=== PATIENT | male | born 1975 | race Caucasian/White ===

== ENCOUNTER 2017-10-07 13:06 | Emergency (ER) | payer SELFPAY ==
--- NOTE | 2017-10-07 13:23 | ER Document Report ---
ED Psych Disorder / Suicide - General Chief Complaint: Suicidal Ideation Stated Complaint: SUICIDAL IDEATION Time Seen by Provider: 10/07/17 13:19 Notes: 42-year-old male patient with chronic history of alcoholism and substance abuse comes in with increased thoughts of self-harm by OD. Admits to THC and cocaine last night. I have greeted and performed a rapid initial assessment of this patient. A comprehensive ED assessment and evaluation of the patient, analysis of test results and completion of the medical decision making process will be conducted by additional ED providers. TRAVEL OUTSIDE OF THE [place] IN LAST 30 DAYS: No - Related Data Allergies/Adverse Reactions: No Known Allergies Allergy (Verified 11/28/15 03:16) Past Medical History - Social History Family History: Reviewed & Not Pertinent - Past Medical History Cardiac Medical History: Reports: Hx Hypertension Musculoskeltal Medical History: Reports Hx Musculoskeletal Trauma Psychiatric Medical History: Reports: Hx Anxiety, Hx Depression - Immunizations Hx Diphtheria, Pertussis, Tetanus Vaccination: Yes Physical Exam - Vital signs Vitals: Temp Pulse Resp BP Pulse Ox 97.5 F 117 H 20 112/80 97 10/07/17 13:16 10/07/17 13:16 10/07/17 13:16 10/07/17 13:16 10/07/17 13:16 Course - Vital Signs Vital signs: Temp Pulse Resp BP Pulse Ox 97.5 F 117 H 20 112/80 97 10/07/17 13:16 10/07/17 13:16 10/07/17 13:16 10/07/17 13:16 10/07/17 13:16
[2017-10-07 14:05] LABS: ABSOLUTE EOSINOPHILS # (AUTO) 0.1 10^3/uL (0.0-0.6); ABSOLUTE LYMPHOCYTES (AUTO) 1.5 10^3/uL (0.5-4.7); ABSOLUTE MONOCYTES (AUTO) 0.4 10^3/uL (0.1-1.4); ABSOLUTE NEUT (AUTO) 3.3 10^3/uL (1.7-8.2); BASOPHILS % (AUTO) 0.5 % (0-2); EOSINOPHILS % (AUTO) 1.6 % (0-6); HEMATOCRIT 45.9 % (37.9-51.0); HEMOGLOBIN 15.7 g/dL (13.5-17.0); LYMPHOCYTES % (AUTO) 28.6 % (13-45); MEAN CORPUSCULAR HEMOGLOBIN 28.8 pg (27.0-33.4); MEAN CORPUSCULAR HGB CONC 34.3 g/dL (32.0-36.0); MEAN CORPUSCULAR VOLUME 84 fl (80-97); MONOCYTES % (AUTO) 6.7 % (3-13); PLATELET COUNT 284 10^3/uL (150-450); RED BLOOD COUNT 5.45 10^6/uL (4.35-5.55); RED CELL DISTRIBUTION WIDTH 13.8 % (11.5-14.0); SEGMENTED NEUTROPHILS % (AUTO) 62.6 % (42-78); TOTAL CELLS COUNTED % (AUTO) 100 %; WHITE BLOOD COUNT 5.2 10^3/uL (4.0-10.5)
--- NOTE | 2017-10-07 14:09 | ER Document Report ---
ED Psych Disorder / Suicide <[address] - Last Filed: 10/07/17 15:34> - General TRAVEL OUTSIDE OF THE [place] IN LAST 30 DAYS: No <BUSHRA OORZCO - Last Filed: 10/07/17 23:30> - General Chief Complaint: Suicidal Ideation Stated Complaint: SUICIDAL IDEATION Time Seen by Provider: 10/07/17 13:19 Notes: The patient is a 42-year-old male, past medical history chronic alcoholism and substance abuse, presents with increased thoughts of hurting himself by overdosing on his medications. He was recently seen at his psychiatrist and started on Lexapro 1 week ago. Patient admits to THC and cocaine last night. He also abuses Percocet and heroin. His last alcohol drink was 3 days ago and he is not feeling he is going through any alcohol withdrawal. Patient denies chest pain, shortness of breath, hallucinations, fevers, headache, neck stiffness or any other complaints. (BUSHRA OROZCO) - Related Data Allergies/Adverse Reactions: No Known Allergies Allergy (Verified 11/28/15 03:16) Past Medical History - General Information source: Patient - Social History Smoking Status: Current Every Day Smoker Frequency of alcohol use: Heavy Drug Abuse: Cocaine, Marijuana, Other Family History: Reviewed & Not Pertinent Patient has suicidal ideation: Yes Patient has homicidal ideation: No - Past Medical History Cardiac Medical History: Reports: Hx Hypertension Renal/ Medical History: Denies: Hx Peritoneal Dialysis Musculoskeltal Medical History: Reports Hx Musculoskeletal Trauma Psychiatric Medical History: Reports: Hx Anxiety, Hx Depression - Immunizations Hx Diphtheria, Pertussis, Tetanus Vaccination: Yes <BUSHRA OROZCO - Last Filed: 10/07/17 23:30> Review of Systems <[address] - Last Filed: 10/07/17 15:34> <BUSHRA OROZCO - Last Filed: 10/07/17 23:30> - Review of Systems Notes: REVIEW OF SYSTEMS: CONSTITUTIONAL: -fevers, -chills EENT: -eye pain, -difficulty swallowing, -nasal congestion CARDIOVASCULAR: -chest pain, -syncope. RESPIRATORY: -cough, -SOB GASTROINTESTINAL: -abdominal pain, -nausea, -vomiting, -diarrhea GENITOURINARY: -dysuria, -hematuria MUSCULOSKELETAL: -back pain, -neck pain SKIN: -rash or skin lesions. HEMATOLOGIC: -easy bruising or bleeding. LYMPHATIC: -swollen, enlarged glands. NEUROLOGICAL: -altered mental status or loss of consciousness, -headache, - neurologic symptoms PSYCHIATRIC: -anxiety, +depression, +SI ALL OTHER SYSTEMS REVIEWED AND NEGATIVE. (BUSHRA OROZCO) Physical Exam <[address] - Last Filed: 10/07/17 15:34> <BUSHRA OROZCO - Last Filed: 10/07/17 23:30> - Vital signs Vitals: Temp Pulse Resp BP Pulse Ox 97.5 F 117 H 20 112/80 97 10/07/17 13:16 10/07/17 13:16 10/07/17 13:16 10/07/17 13:16 10/07/17 13:16 - Notes Notes: PHYSICAL EXAMINATION: GENERAL: Well-appearing, well-nourished and in no acute distress. HEAD: Atraumatic, normocephalic. EYES: Pupils equal round and reactive to light, extraocular movements intact, sclera anicteric, conjunctiva are normal. ENT: nares patent, oropharynx clear without exudates. Moist mucous membranes. NECK: Normal range of motion, supple without lymphadenopathy LUNGS: Breath sounds clear to auscultation bilaterally and equal. No wheezes rales or rhonchi. HEART: Regular rate and rhythm without murmurs ABDOMEN: Soft, nontender, normoactive bowel sounds. No guarding, no rebound. No masses appreciated. EXTREMITIES: Normal range of motion, no pitting or edema. No cyanosis. NEUROLOGICAL: Cranial nerves grossly intact. Normal speech, normal gait. Normal sensory and motor exams. PSYCH: Flat affect. Suicidal thoughts. SKIN: Warm, Dry, normal turgor, no rashes or lesions noted. (BUSHRA OROZCO) Course - Laboratory Result Diagrams: 10/07/17 13:45 10/07/17 13:[address] <[address] - Last Filed: 10/07/17 15:34> - Laboratory Result Diagrams: 10/07/17 13:45 10/07/17 13:45 - EKG Interpretation by Id EKG shows normal: Sinus rhythm, [place], Intervals, QRS Complexes, ST-T Waves Rate: Normal <BUSHRA OROZCO - Last Filed: 10/07/17 23:30> - Re-evaluation Re-evalutation: 10/07/17 14:31 Pt with increasing suicidal thoughts after starting Lexapro 1 week ago. He is hemodynamically stable and has no signs of substance or alcohol withdrawal at this time. Patient appears depressed and, with his polysubstance abuse and beginning a new medication, will observe overnight and reassess. Will continue to monitor and have mental health evaluate patient for further recommendations. (BUSHRA OROZCO) - Vital Signs Vital signs: Temp Pulse Resp BP Pulse Ox 97.5 F 117 H 20 112/80 97 10/07/17 13:16 10/07/17 13:16 10/07/17 13:16 10/07/17 13:16 10/07/17 13:16 - Laboratory Laboratory results interpreted by me: 10/07/17 13:45 Chloride 108 H AST 13 L ALT 20 L Alkaline Phosphatase 36 L Total Protein 5.5 L Salicylates < 1.0 L Acetaminophen < 10 L Discharge <[address] - Last Filed: 10/07/17 15:34> <BUSHRA OROZCO - Last Filed: 10/07/17 23:30> - Discharge Clinical Impression: Suicidal thoughts, Polysubstance abuse Condition: Stable Disposition: HOME, SELF-CARE Additional Instructions: COCAINE ABUSE: Cocaine causes many dangerous medical problems. Problems can occur even with "usual" amounts. Cocaine affects judgement, creating a sense of invulnerability. Cocaine users often make bad decisions that seem "great" at the time. Most cocaine users eventually will be hurt by bad job performance, damaged personal relations, crime, and unsafe sexual practices. Toxic effects of cocaine can include seizures, hallucinations, delusions, high blood pressure, heart damage, or sudden . There's always the risk of a "bad batch." But heart attacks, brain hemorrhages, or cardiac arrest can occur unpredictably even with "normal" use. Injection of cocaine is risky for abscesses, endocarditis (heart infection) , pneumonia, and AIDS. Withdrawal from cocaine often causes anxiety and drug cravings. Some users become paranoid and psychotic. Many treatment programs are available, but you must make the decision to quit. Medication can be prescribed to control the symptoms of cocaine toxicity (beta blockers or benzodiazepines). Withdrawal symptoms may require tranquilizers. DEPRESSION: Your evaluation reveals that you have mental depression. While symptoms may be vague, they often include disturbance of sleep, fatigue, loss of appetite , and general loss of interest in life. While depression may be a side effect of drugs, or a reaction to a major change in your life, many cases have no known cause. If depression is acute, and related to a major loss in your life, you can expect it to clear completely with time. If you have been depressed a long time , are prone to repeated bouts of depression or low mood, or have been thinking of suicide, get help. Depression can be treated with anti-depressant medication and counselling. Long-term depression will often take a few weeks to clear, even with appropriate medication. Follow-up care is important. SUICIDAL IDEATION: Suicidal ideation is a common medical term for thoughts about suicide, which may be as detailed as a formulated plan, without the suicidal act itself. Although most people who undergo suicidal ideation do not commit suicide, some go on to make suicide attempts. The range of suicidal ideation varies greatly from fleeting to detailed planning, role playing, and unsuccessful attempts. While thoughts about suicide are common, most people do not carry out serious actions to commit suicide. Based upon your evaluation and discussion with you, we do not believe you are currently at risk to act upon your thoughts of suicide. You have agreed to return to the Emergency Department, at any time , if you feel inclined to act upon your suicidal thoughts. FOLLOW-UP CARE: You have declined inpatient substance abuse treatment; you are encouraged to [facility] for both your mental health and substance abuse treatment. Your mental health treatment cannot be effectively treated until your substance abuse has been addressed. If you experience worsening or a significant change in your symptoms, notify the physician immediately or return to the Emergency Department at any time for re-evaluation. Referrals: [facility] [Outside] - Follow up in 3-5 days
[2017-10-07 14:19] LABS: APPEARANCE,URINE CLEAR; BILIRUBIN,URINE NEGATIVE (NEGATIVE); COLOR,URINE YELLOW; GLUCOSE, URINE NEGATIVE (NEGATIVE); KETONES,URINE NEGATIVE (NEGATIVE); LEUKOCYTE ESTERASE,URINE NEGATIVE (NEGATIVE); NITRITE,URINE NEGATIVE (NEGATIVE); PROTEIN,URINE NEGATIVE (NEGATIVE); URINE SPECIFIC GRAVITY 1.012; UROBILINOGEN,URINE NEGATIVE mg/dL (<2.0)
[2017-10-07 14:24] LABS: ALANINE AMINOTRANSFERASE 20 U/L (21-72); ALBUMIN 3.6 g/dL (3.5-5.0); ALKALINE PHOSPHATASE 36 U/L (38-126); ANION GAP 10 (5-19); ASPARTATE AMINO TRANSFERASE 13 U/L (17-59); BILIRUBIN,DIRECT 0.1 mg/dL (0.0-0.4); BLOOD UREA NITROGEN 16 mg/dL (7-20); CALCIUM 9.2 mg/dL (8.4-10.2); CARBON DIOXIDE 25 mmol/L (22-30); CHLORIDE 108 mmol/L (98-107); GLUCOSE 104 mg/dL (75-110); POTASSIUM 4.1 mmol/L (3.6-5.0); TOTAL PROTEIN 5.5 g/dL (6.3-8.2)
[2017-10-07 14:25] LABS: ACETAMINOPHEN < 10 ug/mL (10-30); ALCOHOL < 10 mg/dL (NONE DETECTED); SALICYLATE < 1.0 mg/dL (2.0-20.0)
[2017-10-07 14:37] LABS: URINE AMPHETAMINES SCREEN NEGATIVE; URINE BARBITURATES SCREEN NEGATIVE; URINE BENZODIAZEPINES SCREEN UNCONFIRMED POSITIVE; URINE COCAINE SCREEN UNCONFIRMED POSITIVE; URINE MARIJUANA (THC) SCREEN NEGATIVE; URINE METHADONE SCREEN NEGATIVE; URINE PHENCYCLIDINE SCREEN NEGATIVE
--- NOTE | 2017-10-07 17:08 | PSYCHOLOGICAL NOTE ---
Psych Note - Psych Note Psych Note: Reason for consult: Suicidal ideation, substance abuse 42-year-old male patient with chronic history of alcoholism and substance abuse comes in with increased thoughts of self-harm by OD. Admits to THC and cocaine last night. Patient disclosed that he has been having suicidal ideation for approximately 2- 3 days and has a plan of either overdosing or hanging himself. He states that he attempted suicide by overdose with heroin 1-1/2 months ago. He continues state that he was put on Effexor and Seroquel but states that it is "not working and this made it worse." Patient denies outpatient mental health or substance use provider and states that he has never had substance abuse treatment. He states that he needs to "get his meds straight." He reports that he has a diagnosis of bipolar and PTSD. Patient was asked if he had transportation by a friend if he was able to get into [facility] he disclosed "left there a week and a half ago and it did not work out." Patient is alert and orientated to person, place, time and circumstance. Mood is dysphoric with flat affect. Patient endorses suicidal ideation with multiple plans i.e. overdosing or hanging. Patient denies homicidal ideation. Delusions are absent behaviors congruent with intact reality based presentation i.e. organized and linear thought processes. Conversational speech was flat. Eye contact was well-maintained. Intellectual abilities appear to be within the average range. Attention and concentration were good. Insight, judgment, impulse control are historically poor due to substance abuse. Clinician notes patient previously has stated he had not received any substance abuse treatment in the past. Polysubstance abuse 292.9 (F12.99) unspecified cannabis related disorder 292.9 (F14.99) unspecified stimulant related disorder; cocaine 292.9 (F11.99) unspecified opiate related disorder; heroin per history provided by patient 291.9 (F10.99) Unspecified Alcohol related discorded per history provided by patient 296.80 (F31.9) unspecified bipolar and related disorder per history provided by patient 309.81 (F43.10) post manic stress disorder per history provided by patient Impression\\plan: Patient is recommended for overnight observation. Patient discloses substance abuse with passive suicidal ideation. Patient recently started on Effexor; presents disphoric mood with flat affect. Patient will be reevaluated. Dr. Pressley was consulted and the care and management this patient ; attending physician is agreement with recommendations and disposition.
--- NOTE | 2017-10-07 17:33 | ER Document Report ---
ED Medical Screen (RME) - General Chief Complaint: Suicidal Ideation Stated Complaint: SUICIDAL IDEATION Time Seen by Provider: 10/07/17 13:19 Notes: 42-year-old male patient with chronic history of alcoholism and substance abuse comes in with increased thoughts of self-harm by OD. Patient admits to THC and cocaine last night. I have greeted and performed a rapid initial assessment of this patient. A comprehensive ED assessment and evaluation of the patient, analysis of test results and completion of the medical decision making process will be conducted by additional ED providers. TRAVEL OUTSIDE OF THE [place] IN LAST 30 DAYS: No - Related Data Allergies/Adverse Reactions: No Known Allergies Allergy (Verified 11/28/15 03:16) Past Medical History - Social History Frequency of alcohol use: Heavy Drug Abuse: Cocaine, Marijuana, Other - Past Medical History Cardiac Medical History: Reports: Hx Hypertension Renal/ Medical History: Denies: Hx Peritoneal Dialysis Musculoskeltal Medical History: Reports Hx Musculoskeletal Trauma Psychiatric Medical History: Reports: Hx Anxiety, Hx Depression - Immunizations Hx Diphtheria, Pertussis, Tetanus Vaccination: Yes Physical Exam - Vital signs Vitals: Temp Pulse Resp BP Pulse Ox 97.5 F 117 H 20 112/80 97 10/07/17 13:16 10/07/17 13:16 10/07/17 13:16 10/07/17 13:16 10/07/17 13:16 Course - Vital Signs Vital signs: Temp Pulse Resp BP Pulse Ox 97.5 F 117 H 20 112/80 97 10/07/17 13:16 10/07/17 13:16 10/07/17 13:16 10/07/17 13:16 10/07/17 13:16 - Laboratory Result Diagrams: 10/07/17 13:45 10/07/17 13:45 Laboratory results interpreted by me: 10/07/17 13:45 Chloride 108 H AST 13 L ALT 20 L Alkaline Phosphatase 36 L Total Protein 5.5 L Salicylates < 1.0 L Acetaminophen < 10 L Doctor's Discharge - Discharge Clinical Impression: Suicidal thoughts, Polysubstance abuse Condition: Stable Disposition: HOME, SELF-CARE Additional Instructions: COCAINE ABUSE: Cocaine causes many dangerous medical problems. Problems can occur even with "usual" amounts. Cocaine affects judgement, creating a sense of invulnerability. Cocaine users often make bad decisions that seem "great" at the time. Most cocaine users eventually will be hurt by bad job performance, damaged personal relations, crime, and unsafe sexual practices. Toxic effects of cocaine can include seizures, hallucinations, delusions, high blood pressure, heart damage, or sudden . There's always the risk of a "bad batch." But heart attacks, brain hemorrhages, or cardiac arrest can occur unpredictably even with "normal" use. Injection of cocaine is risky for abscesses, endocarditis (heart infection) , pneumonia, and AIDS. Withdrawal from cocaine often causes anxiety and drug cravings. Some users become paranoid and psychotic. Many treatment programs are available, but you must make the decision to quit. Medication can be prescribed to control the symptoms of cocaine toxicity (beta blockers or benzodiazepines). Withdrawal symptoms may require tranquilizers. DEPRESSION: Your evaluation reveals that you have mental depression. While symptoms may be vague, they often include disturbance of sleep, fatigue, loss of appetite , and general loss of interest in life. While depression may be a side effect of drugs, or a reaction to a major change in your life, many cases have no known cause. If depression is acute, and related to a major loss in your life, you can expect it to clear completely with time. If you have been depressed a long time , are prone to repeated bouts of depression or low mood, or have been thinking of suicide, get help. Depression can be treated with anti-depressant medication and counselling. Long-term depression will often take a few weeks to clear, even with appropriate medication. Follow-up care is important. SUICIDAL IDEATION: Suicidal ideation is a common medical term for thoughts about suicide, which may be as detailed as a formulated plan, without the suicidal act itself. Although most people who undergo suicidal ideation do not commit suicide, some go on to make suicide attempts. The range of suicidal ideation varies greatly from fleeting to detailed planning, role playing, and unsuccessful attempts. While thoughts about suicide are common, most people do not carry out serious actions to commit suicide. Based upon your evaluation and discussion with you, we do not believe you are currently at risk to act upon your thoughts of suicide. You have agreed to return to the Emergency Department, at any time , if you feel inclined to act upon your suicidal thoughts. FOLLOW-UP CARE: You have declined inpatient substance abuse treatment; you are encouraged to follow-up with [facility] for both your mental health and substance abuse treatment. Your mental health treatment cannot be effectively treated until your substance abuse has been addressed. If you experience worsening or a significant change in your symptoms, notify the physician immediately or return to the Emergency Department at any time for re-evaluation. Referrals: [facility] [Outside] - Follow up in 3-5 days
--- NOTE | 2017-10-07 19:20 | EKG REPORT ---
SEVERITY:- NORMAL ECG - SINUS RHYTHM : Confirmed by: Terrence Bettencourt MD 07-Oct-2017 19:19:01
[2017-10-07] MEDS ORDERED: GABAPENTIN 300 MG CAPSULE PO ONE (23:49)
[2017-10-08] MEDS ORDERED: LORAZEPAM INJ 2 MG/1 ML VIAL IM ONE (10:29)
--- NOTE | 2017-10-08 10:31 | ER Document Report ---
Doctor's Note Notes: 10/08/17 10:29 Mr. Link was seen and examined during the psychiatric rounds with behavioral health team. Patient is here for evaluation of substance abuse including opioids as well as alcohol. Patient was recently started on Effexor and now has worsening depression as well as suicidal ideations. Patient also has substance-induced depression and therefore have the symptoms. This morning he continues to feel depressed as well as suicidal. Patient is willing to be admitted to inpatient psychiatric facility. Patient has mild withdrawal today. Most of it appears to be from opioids given diarrhea as well as abdominal cramping. Patient does have mild tremors bilaterally that can be a withdrawal from alcohol. Will give patient 2 mg of Ativan IM. Disposition per behavioral health team recommendations. At present time patient is being monitored emergency room for further disposition.
--- NOTE | 2017-10-08 13:37 | PSYCHOLOGICAL NOTE ---
Psych Note - Psych Note Psych Note: Reason for consult: Suicidal ideation, substance abuse 42-year-old male patient with chronic history of alcoholism and substance abuse comes in with increased thoughts of self-harm by OD. Admits to THC and cocaine last night. Clinician conducted checking with patient Patient disclosed that he was previously in [facility] for 3 weeks but they would put him on medication without asking "it did not go very well" and feels that he did not get proper treatment. He reports that he would like assistance with his depression and substance abuse however feels that outpatient services would not help him. He continued to disclose that since they put him on Effexor his depression is gotten to the point where he will stare at his bottle of Seroquel and contemplate "eating them." He states that "this is not normal...I need help... when my meds work I don't do any drugs." Clinician spoke with patient's girlfriend, Isabella [phone]. She disclosed the patient has been "severely depressed and was put on new medication." She reports that the patient has a history of bipolar however his medications seem to have stopped working. Patient has not been sleeping and feels alone. She reports the night before last she received a text in the middle the night asking for her to call him in the morning. When she called at 7 AM he was very difficult to understand but was asking to be picked up and taken to the hospital. When she got to him he disclosed that he "ate" all of his medications. She attempted to figure out what medication he took at which point he stated Seroquel but did not know how many he took. She reports the patient has had suicidal ideation for a while and states "he just wants to . " He has reported that he would take all his medications; however, now he had acted on it. She reports that currently their relationship is currently not what the patient wants because "I need someone I can depend on... I cannot be there for him like he needs." Behavior health team contacted the [facility] in [place]; there are no available beds. 296.80 (F31.9) unspecified bipolar and related disorder per history provided by patient Polysubstance abuse 292.9 (F12.99) unspecified cannabis related disorder 292.9 (F14.99) unspecified stimulant related disorder; cocaine 292.9 (F11.99) unspecified opiate related disorder; heroin per history provided by patient 291.9 (F10.99) Unspecified Alcohol related discorded per history provided by patient 309.81 (F43.10) post manic stress disorder per history provided by patient Impression\\plan: Patient is considered cleared for acute psychiatric services. Patient's girl friend will be coming up to [place] patient to drive to [facility] for admission to detox. Patient is agreeing to this. Patient discloses chronic passive suicidal ideation which is increased from his drug use. Patient treatment needs treatment for his substance abuse before his mental health can be appropriately evaluated and treated. Dr. Pressley was consulted and the care and management this patient; attending physician is agreement with recommendations and disposition.
[2017-10-08 17:06] VITALS: BP 129/88
--- NOTE | 2017-10-08 17:29 | ER Document Report ---
Doctor's Note Notes: 10/08/17 17:28 Patient feels better after Ativan. After discussion with patient and family, he agreed to to be discharged with family and drive to [facility] for detox as well as management of his depression. The facility was contacted and patient will go there for walk-in admission. He agree with the plan. Patient was given strict precautions to come back if he is unable to get checked in today.
== END 2017-10-08 17:30 | disposition home or self-care (01) ==
LOC: ER 13:06
DX: R45.851 Suicidal ideations (principal); F19.10 Other psychoactive substance abuse, uncomplicated; F12.90 Cannabis use, unspecified, uncomplicated; F14.90 Cocaine use, unspecified, uncomplicated; F10.20 Alcohol dependence, uncomplicated; I10 Essential (primary) hypertension
CPT/HCPCS: 93005; 99285; 96372; 36415; 80307 ×4; 85025; 80053; 81001; 93010; J2060

== ENCOUNTER 2017-12-06 14:03 | Emergency (ER) | payer SELFPAY ==
[2017-12-06 14:11] VITALS: BP 156/103
--- NOTE | 2017-12-06 15:27 | ER Document Report ---
ED General - General TRAVEL OUTSIDE OF THE [place] IN LAST 30 DAYS: No - HPI Patient complains to provider of: Psychiatric evaluation suicidal ideation - General Chief Complaint: Psych Problem Stated Complaint: PSYCH EVAL/SUICIDAL IDEATION Time Seen by Provider: 12/06/17 14:09 - HPI Notes: Patient coming in for psychiatric evaluation suicidal ideation. Patient apparently has been having suicidal thoughts for a week. On review of patient' s pain discharge patient has multiple evaluations for this in the past along with history of drug abuse. Patient states he does smoke at this time patient is currently in the triage area with a social problems specialist from [facility]. Dr. Pressley has escorted me to the room as well that she will evaluate the patient in the triage room. Patient otherwise denies any fevers chills nausea vomiting diarrhea. (NATHAN HAMILTON) - Related Data Allergies/Adverse Reactions: No Known Allergies Allergy (Verified 12/06/17 14:04) Past Medical History - Social History Smoking Status: Current Every Day Smoker Chew tobacco use (# tins/day): No Frequency of alcohol use: None Drug Abuse: Cocaine, Other Family History: Reviewed & Not Pertinent Patient has suicidal ideation: Yes Patient has homicidal ideation: No - Past Medical History Cardiac Medical History: Reports: Hx Hypertension Renal/ Medical History: Denies: Hx Peritoneal Dialysis Musculoskeltal Medical History: Reports Hx Musculoskeletal Trauma Psychiatric Medical History: Reports: Hx Anxiety, Hx Depression - Immunizations Hx Diphtheria, Pertussis, Tetanus Vaccination: Yes Review of Systems - Review of Systems Constitutional: No symptoms reported EENT: No symptoms reported Cardiovascular: No symptoms reported Respiratory: No symptoms reported Gastrointestinal: No symptoms reported Genitourinary: No symptoms reported Male Genitourinary: No symptoms reported Musculoskeletal: No symptoms reported Skin: No symptoms reported Hematologic/Lymphatic: No symptoms reported Neurological/Psychological: Suicidal ideation -: Yes All other systems reviewed and negative Physical Exam - Vital signs Interpretation: Normal - General General appearance: Appears well, Alert - HEENT Head: Normocephalic, Atraumatic Eyes: Normal Pupils: PERRL - Respiratory Respiratory status: No respiratory distress Chest status: Nontender Breath sounds: Normal Chest palpation: Normal - Cardiovascular Rhythm: Regular Heart sounds: Normal auscultation Murmur: No - Abdominal Inspection: Normal Distension: No distension Bowel sounds: Normal Tenderness: Nontender Organomegaly: No organomegaly - Back Back: Normal, Nontender - Extremities General upper extremity: Normal inspection, Nontender, Normal color, Normal ROM , Normal temperature General lower extremity: Normal inspection, Nontender, Normal color, Normal ROM , Normal temperature, Normal weight bearing. No: Norma's sign - Neurological Neuro grossly intact: Yes Cognition: Normal Orientation: AAOx4 [place] Coma Scale Eye Opening: Spontaneous [place] Coma Scale Verbal: Oriented [place] Coma Scale Motor: Obeys Commands [place] Coma Scale Total: 15 Speech: Normal Motor strength normal: LUE, RUE, LLE, RLE Sensory: Normal - Skin Skin Temperature: Warm Skin Moisture: Dry Skin Color: Normal - Vital signs Vitals: Temp Pulse Resp BP Pulse Ox 98.0 F 99 18 156/103 H 97 12/06/17 14:08 12/06/17 14:08 12/06/17 14:08 12/06/17 14:08 12/06/17 14:08 Course - Re-evaluation Re-evalutation: 12/06/17 20:31 Patient was evaluated by Dr. Pressley in the triage area or is working today. Patient according to Dr. Pressley denies any suicidal ideation however states he was underlying situation her recommendation was to discharge patient home with a prescription for Celexa patient states that Celexa has helped in the past. Prior to receiving his discharge papers paperwork patient left the ER (NATHAN HAMILTON) - Vital Signs Vital signs: Temp Pulse Resp BP Pulse Ox 98.0 F 99 18 156/103 H 97 12/06/17 14:08 12/06/17 14:08 12/06/17 14:12/06/17 14:08 12/06/17 14:08 Discharge - Discharge Clinical Impression: Cocaine abuse Condition: Stable Disposition: HOME, SELF-CARE Additional Instructions: You were seen in the Emergency Department today for suicidal ideation and cocaine intoxication. You were evaluated and and assessed to be appropriate for discharge. Medications: 1. Celexa 20 mg daily Suicidal Ideation Suicidal ideation is a common medical term for thoughts about suicide, which may be as detailed as a formulated plan, without the suicidal act itself. Although most people who undergo suicidal ideation do not commit suicide, some go on to make suicide attempts. The range of suicidal ideation varies greatly from fleeting to detailed planning, role playing, and unsuccessful attempts. While thoughts about suicide are common, most people do not carry out serious actions to commit suicide. Given your chronic use of cocaine, and your recent ( i.e.today's use of crack/cocaine) use of cocaine, you are considered under the influence of an illegal and mood altering substance. Cocaine impairs an individual's mood, judgment, and impulse control, and can increase or cause suicidal thoughts or ideations. You are encouraged to seek long-term substance abuse treatment to address your substance induced mood disorder. Please return to the ED if your symptoms return or increase. Prescriptions: Citalopram Hydrobromide [Celexa] 1 tab PO DAILY #14 tablet
--- NOTE | 2017-12-07 19:46 | PSYCHOLOGICAL NOTE ---
Psych Note - Psych Note Psych Note: Met with Patient in [facility], who reported he was "suicidal with a plan." He stated he was depressed and wanted to "go inpatient and get my head straight before I go to an inpatient substance abuse facility." Patient reported he feels his medications are no longer working and they are making him more suicidal, though he ran out of them yesterday. He also states he was unaware that by suddenly stopping them would make him suicidal. Patient reports he was taking Effexor and Seroquel. Patient reports since he was last at [facility] in September 2017 he went to [facility] where he was inpatient for 10-15 days. He stated they increased his Effexor and Seroquel which he believed was working until the day he was discharged. He stated the medication was expensive and could not afford the medication since he had no insurance. He further reported he had his previous prescription which was already filled and only had to fill the current prescription provided to him at discharge at the beginning of October. patient reported he has not used any alcohol or other drugs since his discharge from [facility], except for crack / cocaine, which he has used daily to include this morning. He report chronic suicidal thoughts for the past 4 years and denied any previous attempts. Patient became very irritated with the questions and stated he just wanted help and to go inpatient to "clear his head." When attempting to clarify about the Effexor and understanding his situation, given it was the same exact story for the past 3 years, and he continues to take Effexor and Seroquel, despite them reportedly "not working" Patient became very aggravated and stated he did not want to leave and became threatening. The A worker who brought the Patient in, Shefali, reported she was unaware of the Patient's use of cocaine and was requesting [facility] to hold the Patient overnight until she could locate a bed in a detox. When questioned further about detox since Patient is denying use of drugs and she was unaware of his cocaine use, she was unwilling to discuss it. She would only state the Patient was suicidal. Shefali was advised of the Patient's history and his previous presentations while intoxicated and his ongoing pattern of behavior with regard to suicidal threats and agitations, and demands when he doesn't get what he wants. She then left the room to reportedly call her metal fabricating supervisor and returned to ask again if [facility] would hold the Patient overnight while they searched for a dual diagnosis inpatient facility.I explained to Shefali that while she was out of the room the Patient and I talked and he advised he was not really suicidal, he was upset about being "jerked around all day and being told he was going to be placed and then being brought here when I didn't want to come here at all." I also advised her we talked about his medications, what did work for him and safety planning, and long-term substance abuse programs that might be a good fit. We discussed treatment planning with which he was on board with. Shefali responded with "I'm not comfortable with releasing someone who states they are suicidal." I again explained to her that he was fully assessed, treatment planning had taken place while she was out of the room, and he was ready for discharge. At this time, I was asked to leave the room so a conversation between the patient and the [facility] Mobile pantry goods worker could take place. Upon return approximately 10 minutes, the Patient and the [facility] worker reported the Patient was again suicidal and we needed to keep him overnight so she could seek longer term placement. At this time, both were advised that the game playing and scheming was not appreciated, nor was the manipulation of the ED services. The Patient was evaluated by the ED doc and this clinician and determined to not be suicidal, rather manipulating providers. He would be provided a script for Celexa 20 mg for 7 days, which he reported was a previously helpful medication, and he could continue to work with [facility] for voluntary substance abuse treatment. His pattern of behavior in the past 3 years was unchanged and it was not appreciated that [facility] was assisting him to continue the maladaptive, manipulative behavior. While discharge paperwork was being completed, the Patient left without his script. Patient was alert and oriented to person, place, time,and circumstance. Mood was irritable and aggressive. He reported suicidal ideation without plan or intent. He denied psychosis and no delusions were noted. Thought processes were linear, organized, and rational. Conversational speech was within normal limits for rate, prosody and loud for tone. Intellectual abilities were estimated to be within the average range. Patient presented as demanding and threatening when he did not immediately get his way. He became physically threatening if he felt he was not going to be admitted to the ED, but was moderately redirectable. 1. Substance Use Disorder, Cocaine 2. Substance Use Disorder, Opioids 3. Substance Use Disorder, Benzodiazepines 4. Substance Use Disorder, Alcohol Impression / Plan: Patient is recommended to continue to seek outpatient care home substance abuse services. He presents with suicidal ideation but his reports continue to be manipulative in nature as he uses this in an attempt to get his needs met, particularly when under the influence of substances. He presented with an [facility] worker who he did not tell he had used crack/cocaine prior to contacting her or that he used daily, and expected her to get him into a detox immediately. When talking with patient without [facility] worker present, Patient admitted he was not suicidal and really wanted a change in his medication and the [facility] worker made him come to the hospital and told him he needed to come voluntarily or he would be IVC. Following the 1:1 conversation, the [facility] worker and the Patient had a private conversation and immediately the worker reports the Patient is again suicidal and wants the ED to hold the Patient overnight while she seeks placement for substance abuse. The Patient had a treatment plan in place had been discussed and advised he was not a danger to self or others. Thus he was determined to not be a danger to himself and both were advised that manipulation of hospital services was not appreciated. ED physician in agreement with recommendation and disposition of discharge.
== END 2017-12-06 16:22 | disposition home or self-care (01) ==
LOC: ER 14:03
DX: F14.10 Cocaine abuse, uncomplicated (principal); R45.851 Suicidal ideations; F17.200 Nicotine dependence, unspecified, uncomplicated; I10 Essential (primary) hypertension
CPT/HCPCS: 99284